=== PATIENT | male | born 1965 | race Caucasian/White ===

== ENCOUNTER → 2016-08-09 | Outpatient (CLI) | payer BC ==
--- NOTE | 2016-08-09 22:04 | PN ---
This is a 51-year-old male patient who is coming in with difficulties of daytime hypersomnolence and sleepiness. I diagnosed this patient with obstructive sleep apnea approximately 3 years ago. Back then the patient underwent a screening polysomnogram and he was found to have moderate to severe NIKOLAY with an apnea-hypopnea index of 21.9. His disease was worse in REM where his AHI during REM was as high as 48. He also demonstrated some mild degree of nocturnal oxygen desaturation and his sleep was slightly fragmented. He is a chronic alcohol drinker, and drinks approximately 5 to 6 beers every night and he is still drinking at the same over the past few years. Note that his previous treatment with CPAP therapy has been suboptimal. I tried to treat him with CPAP at a pressure of 9 cm of water. I added Ambien to improve his ability to induce and maintain sleep, and I also add Paxil to help with his increased anxiety. All these measures failed and the patient has quit using the treatment. Over the past 3 to 4 years the patient has gained around 5 pounds and is coming in knowing that his condition has gotten worse and has become more sleepy to the point where this is affecting his quality of life. I noted his CPAP machine and I noted that the patient had not been using the treatment at all. Meanwhile he is having chronic arthritic pain and is currently was started on low-dose prednisone of 5 mg p.o. daily. He is taking Cialis for rectal dysfunction. Is taking Prilosec for symptoms of chronic gastroesophageal reflux. BP is 119/64, pulse 82, respirations 16, temperature 97.8, saturation 96% on room air. Weight is 195. Height 5 feet 8 inches, neck size is 15-1/4. GENERAL APPEARANCE: Calm, comfortable. HEENT: Crowding of the posterior pharynx. There is no goiter, neck masses. LUNGS: Clear to auscultation. HEART: Sounds are regular rate and rhythm. Normal S1, S2. No S3, no S4. No murmurs. ABDOMEN: Soft, nontender, no organomegaly. EXTREMITIES: No edema, no cyanosis, or clubbing. IMPRESSION: 1. Moderately severe obstructive sleep apnea and an AHI of 21, worse during REM. 2. Increased hypersomnia and sleepiness. 3. Failed CPAP therapy in the past. 4. Alcoholism. 5. Increased anxiety and panic. PLAN: That patient has made a commitment to use CPAP and I gave him a [employer] nasal pillows to use which he liked and he seems to be favoring this type of mask. I also put him on an APAP trial over the next 30 days to assess his compliancy and tolerability to CPAP therapy. Based on that I will make further adjustments and decide if there is need for any further testing. Unfortunately he continues to drink alcohol, which will obviously fragment his sleep and wake him up constantly throughout the night. He is already aware of that. He was counseled in this regard on multiple occasions. We will continue to follow and make further recommendations.
== END | disposition home or self-care (01) ==
LOC: SLEEP 15:23
PROVIDERS: ATTEND Internal Medicine Critical Care Medicine
DX: G47.33 Obstructive sleep apnea (adult) (pediatric) (principal); F10.20 Alcohol dependence, uncomplicated; F41.9 Anxiety disorder, unspecified; F41.0 Panic disorder [episodic paroxysmal anxiety]; M19.90 Unspecified osteoarthritis, unspecified site; Z79.52 Long term (current) use of systemic steroids

== ENCOUNTER → 2017-03-14 | Outpatient (CLI) | payer BC ==
--- NOTE | 2017-03-14 16:44 | PN ---
PROGRESS NOTE A 51-year-old male patient with excessive daytime hypersomnolence and sleepiness. The patient was diagnosed having obstructive sleep apnea moderately severe many years back with an AHI of 21.9. He was given CPAP therapy which over the years he became noncompliant which he attributes to poor tolerability. He is a chronic alcohol drinker and drinks 5 to 6 beers every night. Note that his CPAP machine is currently set at a pressure of 9 cm of water. At one point, I added Ambien to improve his ability to induce and maintain sleep and also added Paxil to help him with increased anxiety. All these measures failed. During his last evaluation here in my office I gave him an auto CPAP trial which he failed to use. As such all the treatment failed and the patient is still symptomatic and wants to be treated for this. He has done some research and he is interested in upper airway stimulation technology for treatment of obstructive sleep apnea. I think that is reasonable. If this is being offered at other hospitals including the sleep center in [facility]. For that reason, a repeat sleep study will be done to reassess the presence and severity of obstructive sleep apnea and based on that further recommendations are to follow. His current vitals: Blood pressure is 114/71, pulse 66, respirations 14 temperature 98.4 saturation 96% on room air. Weight is 191, height is 67, a quarter BMI 29.7. [place] score is 22. GENERAL APPEARANCE: Calm, comfortable. HEENT: Mallampati class IV. There is no goiter or neck masses. Head is atraumatic, normocephalic. NECK: Negative for goiter or neck masses. Mallampati class IV. LUNGS: Clear to auscultation. HEART: Sounds regular rhythm. Normal S1, S2. No S3, S4. No murmurs. ABDOMEN: Is soft, nontender. No organomegaly. No direct tenderness, rebound or guarding. EXTREMITIES: No edema. No cyanosis or clubbing. NEUROLOGICALLY: AOx3. No focal neurological deficits. PSYCHIATRIC: Increased anxiety. SKIN: Negative for any ulcers, wounds or cellulitis. IMPRESSION: 1. Symptomatic obstructive sleep apnea. The patient has failed CPAP therapy. 2. Poor tolerability to CPAP. 3. Increased anxiety. 4. Alcoholism. 5. Anxiety and panic. PLAN: 1. Performing home sleep study to readdress the presence of sleep apnea. 2. Consider upper airway stimulation through a generator for treatment of obstructive sleep apnea. This can be done at [facility]. 3. We will make further recommendations or referrals once the home sleep study is completed. MMANDREINAL / IJN: [id number] /
== END | disposition home or self-care (01) ==
LOC: SLEEP 14:12
PROVIDERS: ATTEND Internal Medicine Critical Care Medicine
DX: G47.33 Obstructive sleep apnea (adult) (pediatric) (principal); F41.9 Anxiety disorder, unspecified; F10.20 Alcohol dependence, uncomplicated

== ENCOUNTER → 2017-10-24 | Outpatient (CLI) | payer BC ==
--- NOTE | 2017-10-24 18:00 | SFUN ---
SLEEP CENTER FOLLOW UP NOTE DATE OF SERVICE: 10/24/2017. HISTORY: The patient is 52-year-old male seeing me in followup regarding obstructive sleep apnea. The patient has severe NIKOLAY with an AHI of 56. He is unable to tolerate CPAP machine. We have tried different measures on this patient and over the years I have tried different mask interfaces and despite that the patient is unable to achieve a good compliancy. I checked his numbers on the CPAP machine and the patient has been utilizing CPAP almost all the time, yet he has been achieving 1.9 hours of CPAP use per night. His leak factor is 11 L/minute and his AHI while on treatment is down to 1.4. He noticed that he benefits from the treatment, however, is unable to keep it for long periods of time. He is currently using a full-face mask, an AirFit F10. No recent weight gain. No anxiety. No depression. No nocturnal heartburn. No nocturnal shortness of breath. No dreams. No sleep paralysis. No hallucinations. PHYSICAL EXAMINATION: BP 99/61, pulse 74, respirations 16, weight is 194, temperature 99.1 GENERAL APPEARANCE: Calm and comfortable. HEAD: Atraumatic, normocephalic. NECK: Supple. There is no JVD. No goiter or neck masses. LUNGS: Clear to auscultation. HEART: Regular rate and rhythm. Normal S1, S2. No S3, S4. No murmurs. ABDOMEN: Soft, nontender. No organomegaly. EXTREMITIES: No edema. No cyanosis or clubbing. IMPRESSION: 1. Symptomatic obstructive sleep apnea with an AHI of 56.2. 2. Hypersomnia with [place] score of 19. 3. Difficulty tolerating CPAP machine. 4. Chronic alcoholism. 5. Anxiety/panic. PLAN: I gave this patient a different mask, an AirFit F20, medium-sized, and AirTouch large size. He should be able to tolerate the treatment. I tried the mask on him and he had an excellent fit here in the office. We will see him back in 6 weeks time. I am worried that the patient will ultimately lose his machine if he does not demonstrate adequate use. He is aware of this. He will see me back in 6 weeks time for followup. MMODL / IJN: [id number] /
== END | disposition home or self-care (01) ==
LOC: SLEEP 13:49
PROVIDERS: ATTEND Internal Medicine Critical Care Medicine
DX: G47.33 Obstructive sleep apnea (adult) (pediatric) (principal); F10.20 Alcohol dependence, uncomplicated; F41.9 Anxiety disorder, unspecified; Z99.89 Dependence on other enabling machines and devices

== ENCOUNTER → 2021-02-27 | Outpatient (CLI) | payer BC ==
--- NOTE | 2021-02-28 08:56 | MR ---
EXAMINATION TYPE: MR brain/cspine wo DATE OF EXAM: 02/27/2021 COMPARISON: Prior MRI brain December 09, 2014. CT brain the 2014 HISTORY: Radiculopathy, episodic ataxia w/slurred speech TECHNIQUE: Multiplanar, multisequence imaging of the brain and brainstem and cervical spine are perfo rmed without IV contrast. FINDINGS: Brain: Diffusion weighted images demonstrate no evidence of a recent infarct or other diffusion abnormality. The ventricular system and cisternal spaces are normal in size and appearance. The brain volume is a ge appropriate. Few small scattered foci of T2 hyperintensity redemonstrated throughout the white mat ter bilaterally. Approximately 5-10 scattered tiny lesions. No significant progression from 2015 MRI. Midline structures demonstrate normal morphology. The craniocervical junction appears within normal limits. Normal vascular flow voids are present. Mild to moderate mucosal thickening inferior left max illary sinus is noted. IMPRESSION: Mild to minimal nonspecific white matter changes favored on the basis of product of chron ic small vessel ischemic change in patient of this age. No significant change from prior. Chronic lef t maxillary sinus disease inferiorly redemonstrated. C-SPINE: MRI CERVICAL SPINE: FINDINGS: Sagittal images of the cervical spine show the craniocervical junction to appear within nor mal limits. The cervical and upper thoracic spinal cord is normal in course, caliber, and signal. V ertebral alignment is anatomic. The vertebral body and intravertebral disk heights are normal. The bone marrow signal intensity is within normal limits. Axial images show C2-C3 and C3-C4 levels to appear within normal limits. Axial images at C4-C5 levels from uncovertebral facet degenerative changes bilaterally causing modera te to severe right and mild to moderate left-sided neural foraminal narrowing. Axial images at C5-C6 level broad-based left paracentral disc protrusion with uncovertebral facet spu rring facing anterior thecal sac and causing moderate to severe bilateral neural foraminal narrowing. Axial images at C6-C7 level show less prominent broad-based posterior disc protrusion effacing the an terior thecal sac and causing moderate bilateral neural foraminal narrowing. Axial images at C7-T1 level appear within normal limits. IMPRESSION: Multilevel degenerative changes C4-C5 through C6-C7 level as detailed above.
== END | disposition home or self-care (01) ==
LOC: RADMRIMAIN 14:09
PROVIDERS: ATTEND Family Medicine
DX: I67.82 Cerebral ischemia (principal); J32.0 Chronic maxillary sinusitis; M50.123 Cervical disc disorder at C6-C7 level with radiculopathy; M47.22 Other spondylosis with radiculopathy, cervical region; M99.71 Connective tissue and disc stenosis of intervertebral foramina of cervical region
CPT/HCPCS: 70551; 72141

== ENCOUNTER 2021-03-12 17:39 | Emergency (ER) | payer BC ==
[2021-03-12 18:19] VITALS: TEMP 98.1
[2021-03-12] MEDS ORDERED: ASPIRIN 81 MG PO STA (20:50)
[2021-03-12] MEDS ORDERED: KETOROLAC 15 MG/ML 1 ML VIAL IVP STA (20:51)
[2021-03-12 21:08] LABS: Basophils # (A) 0.1 k/uL (0-0.2); Basophils % (A) 1 %; Eosinophils # (A) 0.3 k/uL (0-0.7); Eosinophils % (A) 4 %; HCT 44.2 % (39.0-53.0); HGB 14.9 gm/dL (13.0-17.5); Lymphocytes % (A) 26 %; MCH 31.4 pg (25.0-35.0); MCHC 33.8 g/dL (31.0-37.0); MCV 92.9 fL (80.0-100.0); Mean Platelet Volume 7.1; Monocytes # (A) 0.5 k/uL (0-1.0); Monocytes % (A) 6 %; Neutrophils # (A) 4.9 k/uL (1.3-7.7); Neutrophils % (A) 62 %; Platelet Count 242 k/uL (150-450); RBC 4.76 m/uL (4.30-5.90); RDW 11.9 % (11.5-15.5); WBC 7.9 k/uL (3.8-10.6)
[2021-03-12 21:17] LABS: ALT 24 U/L (4-49); AST 28 U/L (17-59); African American GFR (CKD) >90 (>60 ml/min/1.73 sqM); Albumin 4.4 g/dL (3.5-5.0); Alkaline Phosphatase 65 U/L (38-126); Anion Gap 9 mmol/L; Blood Urea Nitrogen 15 mg/dL (9-20); Calcium 9.7 mg/dL (8.4-10.2); Carbon Dioxide 25 mmol/L (22-30); Chloride 103 mmol/L (98-107); Glucose 96 mg/dL (74-99); Non-African American GFR(CKD) >90 (>60 ml/min/1.73 sqM); Potassium 4.3 mmol/L (3.5-5.1); Sodium 137 mmol/L (137-145); Total Bilirubin 0.7 mg/dL (0.2-1.3); Total Protein 7.1 g/dL (6.3-8.2)
[2021-03-12 21:23] VITALS: BP 125/83; PULSE 64; RESP 16
[2021-03-12 21:35] LABS: Partial Thromboplastin Time 25.6 sec (22.0-30.0); Prothrombin Time 10.9 sec (9.0-12.0)
--- NOTE | 2021-03-12 21:58 | XR ---
EXAMINATION TYPE: XR chest 2V DATE OF EXAM: 03/12/2021 COMPARISON: Chest radiograph 12/08/2014. HISTORY: Chest pain. TECHNIQUE: Frontal and lateral views of the chest are obtained. FINDINGS: There is no focal air space opacity, pleural effusion, or pneumothorax seen. The cardiac silhouette size is within normal limits. There is increased prominence of the central pulmonary vasc ulature. The osseous structures are intact. IMPRESSION: Increasing prominence of the central pulmonary vasculature. No consolidation, effusion o r pneumothorax
--- NOTE | 2021-03-12 22:10 | ED ---
General Adult HPI - General Chief complaint: Chest Pain Stated complaint: Chest Pain Time Seen by Provider: 03/12/21 20:20 Source: patient, RN notes reviewed, old records reviewed Mode of arrival: ambulatory Limitations: no limitations - History of Present Illness Initial comments: Patient is a 55-year-old male with no significant past medical history who presents emergency Department complaining of sudden onset of chest pain. I evaluated the patient was placed in a room. Prior to me evaluating the patient, patient had chest pain approximately 4 hours prior. He describes it as a right- sided chest pain that was sudden in onset and achy. Lasted for approximately 2- 3 minutes. It self resolved. He states he was sitting down when it happened. He became concerned as he does have a history of a TIA and family members have a history of strokes and he wanted to be evaluated. He states that his symptoms have resolved. States that he had some reproducible chest pain on palpation of the right pectoralis muscle. He denied any shortness breath, lightheadedness, history of blood clots, fevers, chills, cough. Patient was not vaccinated for COVID-19. He otherwise has no acute complaints at this time. And no other associated complaints at the time of the chest pain. Is already resolved. He has no tobacco history or diabetes history. No history of early onset heart disease and family members. He is concerned for possible cardiac etiology for his chest pain which is why he presented to the ED. - Related Data Home Medications Medication Instructions Recorded Confirmed Multivitamin [Men's Multi-Vitamin] 1 each PO DAILY 12/08/14 12/08/14 Omeprazole [PriLOSEC] 40 mg PO BID 12/08/14 12/08/14 allopurinoL [Zyloprim] 100 mg PO DAILY 12/08/14 12/08/14 Previous Rx's Medication Instructions Recorded Aspirin EC [Ecotrin] 325 mg PO DAILY tablet. 12/09/14 Meclizine [Antivert] 25 mg PO BID #60 tab 12/10/14 Allergies Allergy/AdvReac Type Severity Reaction Status Date / Time No Known Allergies Allergy Verified 03/12/21 18:19 Review of Systems ROS Statement: Those systems with pertinent positive or pertinent negative responses have been documented in the HPI. Review of Systems: CONST: Denies fever EYES: Denies blurry vision ENT: Denies nasal congestion C/V: Endorses resolved chest pain RESP: Denies shortness of breath GI: Denies abdominal pain : Denies dysuria SKIN: Denies rash. MSK: Denies joint pain. NEURO: Denies headache ROS Other: All systems not noted in ROS Statement are negative. Past Medical History Past Medical History: GERD/Reflux, Hypertension Additional Past Medical History / Comment(s): Gout History of Any Multi-Drug Resistant Organisms: None Reported Past Surgical History: No Surgical Hx Reported Past Anesthesia/Blood Transfusion Reactions: No Reported Reaction Past Psychological History: Anxiety Smoking Status: Never smoker Past Alcohol Use History: Daily Past Drug Use History: None Reported - Past Family History Mother Family Medical History: CVA/TIA, Myocardial Infarction ([place]) Father Family Medical History: CVA/TIA, Myocardial Infarction ([place]) General Exam - General Exam Comments Initial Comments: General: Appears in no acute distress. HEAD: Normal with no signs of head trauma. EYES: PERRLA, EOMI, conjunctiva normal, no discharge. ENT: Hearing grossly intact, normal oropharynx. RESPIRATORY: Clear breath sounds bilaterally. No wheezes, rales, or rhonchi. C/V: Regular rate and rhythm. S1 and S2 auscultated, no edema, peripheral pulses 2+ and intact throughout ABD: Abd is soft, nontender, nondistended EXT: Normal range of motion, no obvious deformity SKIN: No rashes or lesions observed on exposed skin. NEURO: Alert and oriented 4. No focal deficits. Limitations: no limitations Course Vital Signs 03/12/21 03/12/21 18:17 21:22 Temperature 98.1 F Pulse Rate 66 64 Respiratory 20 16 Rate Blood Pressure 127/79 125/83 O2 Sat by Pulse 95 98 Oximetry Medical Decision Making - Medical Decision Making Based on the patient's presentation and physical exam, I'm concerned for possible cardiac etiology for his current symptoms. Patient is currently asymptomatic and his chest pain is resolved. It occurred over 4 hours ago therefore we will obtain a single troponin addition to cardiac workup consisting of EKG, chest x-ray. He endorses no acute complaints at this time. He'll be connected to continuous cardiac pain while he is in the department and given an aspirin. He also be given Toradol. Patient was in agreement this plan. Patient's EKG showed normal sinus rhythm with no signs of acute ischemia. Pa tient's chest x-ray revealed no acute cardiopulmonary process. Patient's lavatory studies are remarkable for a negative troponin. Remainder of his labs are within normal limits. I instructed the patient to follow up with their PCP in the next 3 days. . I explained that the patient should return to the emergency department if they experience any worsening symptoms. Strict return precautions were discussed with the patient. The patient expressed understanding of these instructions. I answered all questions that the patient had. The patient was discharged home in good condition with their prescriptions and follow up information. - Lab Data Result diagrams: 03/12/21 Unknown 03/12/21 Unknown Lab Results 03/12/21 03/12/21 03/12/21 Range/Units Unknown Unknown Unknown WBC 7.9 (3.8-10.6) k/uL RBC 4.76 (4.30-5.90) m/uL Hgb 14.9 (13.0-17.5) gm/dL Hct 44.2 (39.0-53.0) % MCV 92.9 (80.0-100.0) fL MCH 31.4 (25.0-35.0) pg MCHC 33.8 (31.0-37.0) g/dL RDW 11.9 (11.5-15.5) % Plt Count 242 (150-450) k/uL MPV 7.1 Neutrophils % 62 % Lymphocytes % 26 % Monocytes % 6 % Eosinophils % 4 % Basophils % 1 % Neutrophils # 4.9 (1.3-7.7) k/uL Lymphocytes # 2.0 (1.0-4.8) k/uL Monocytes # 0.5 (0-1.0) k/uL Eosinophils # 0.3 (0-0.7) k/uL Basophils # 0.1 (0-0.2) k/uL PT 10.9 (9.0-12.0) sec INR 1.0 (<1.2) APTT 25.6 (22.0-30.0) sec Sodium 137 (137-145) mmol/L Potassium 4.3 (3.5-5.1) mmol/L Chloride 103 (98-107) mmol/L Carbon Dioxide 25 (22-30) mmol/L Anion Gap 9 mmol/L BUN 15 (9-20) mg/dL Creatinine 0.67 (0.66-1.25) mg/dL Est GFR (CKD-EPI)AfAm >90 (>60 ml/min/1.73 sqM) Est GFR (CKD-EPI)NonAf >90 (>60 ml/min/1.73 sqM) Glucose 96 (74-99) mg/dL Calcium 9.7 (8.4-10.2) mg/dL Magnesium 2.0 (1.6-2.3) mg/dL Total Bilirubin 0.7 (0.2-1.3) mg/dL AST 28 (17-59) U/L ALT 24 (4-49) U/L Alkaline Phosphatase 65 (38-126) U/L Troponin I (0.000-0.034) ng/mL Total Protein 7.1 (6.3-8.2) g/dL Albumin 4.4 (3.5-5.0) g/dL 03/12/21 Range/Units Unknown WBC (3.8-10.6) k/uL RBC (4.30-5.90) m/uL Hgb (13.0-17.5) gm/dL Hct (39.0-53.0) % MCV (80.0-100.0) fL MCH (25.0-35.0) pg MCHC (31.0-37.0) g/dL RDW (11.5-15.5) % Plt Count (150-450) k/uL MPV Neutrophils % % Lymphocytes % % Monocytes % % Eosinophils % % Basophils % % Neutrophils # (1.3-7.7) k/uL Lymphocytes # (1.0-4.8) k/uL Monocytes # (0-1.0) k/uL Eosinophils # (0-0.7) k/uL Basophils # (0-0.2) k/uL PT (9.0-12.0) sec INR (<1.2) APTT (22.0-30.0) sec Sodium (137-145) mmol/L Potassium (3.5-5.1) mmol/L Chloride (98-107) mmol/L Carbon Dioxide (22-30) mmol/L Anion Gap mmol/L BUN (9-20) mg/dL Creatinine (0.66-1.25) mg/dL Est GFR (CKD-EPI)AfAm (>60 ml/min/1.73 sqM) Est GFR (CKD-EPI)NonAf (>60 ml/min/1.73 sqM) Glucose (74-99) mg/dL Calcium (8.4-10.2) mg/dL Magnesium (1.6-2.3) mg/dL Total Bilirubin (0.2-1.3) mg/dL AST (17-59) U/L ALT (4-49) U/L Alkaline Phosphatase (38-126) U/L Troponin I <0.012 (0.000-0.034) ng/mL Total Protein (6.3-8.2) g/dL Albumin (3.5-5.0) g/dL - EKG Data -: EKG Interpreted by Me EKG Comments: 12-lead Electrocardiogram Interpretation Note EKG was reviewed and interpreted by myself. 12-lead ECG performed at 1834 is interpreted by me as revealing normal sinus rhythm at a rate of 64 beats per minute. [place] is normal. ME interval is 182 ms, QRS duration is 86 ms, QTc is 412 ms.. There were no ST or T wave abnormalities to suggest myocardial ischemia or injury. R wave progression across the precordium was satisfactory. By my interpretation this EKG is non-diagnostic for acute ischemia. Disposition Clinical Impression: Chest pain of unknown etiology Disposition: HOME SELF-CARE Condition: Good Instructions (If sedation given, give patient instructions): Chest Pain (ED) Is patient prescribed a controlled substance at d/c from ED?: No Referrals: Drea Becerra DO [Primary Care Provider] - 1-2 days
== END 2021-03-12 22:20 | disposition home or self-care (01) ==
LOC: EC 17:39
DX: R07.89 Other chest pain (principal); I10 Essential (primary) hypertension; K21.9 Gastro-esophageal reflux disease without esophagitis; M10.9 Gout, unspecified; Z79.899 Other long term (current) drug therapy
CPT/HCPCS: 36415; 71046; 80053; 83735; 84484; 85025; 85610; 85730; 93005; 99285

== ENCOUNTER → 2021-12-28 | Outpatient (CLI) | payer BC ==
--- NOTE | 2021-12-28 08:26 | XR ---
EXAMINATION TYPE: XR orbit complete bilateral DATE OF EXAM: 12/28/2021 COMPARISON: NONE HISTORY: [id number] TECHNIQUE: 4 views of the orbits are submitted. FINDINGS: No evidence for radiopaque foreign body. Paranasal sinuses are well-aerated. No evidence fo r fracture. IMPRESSION: The patient is cleared for MRI.
== END | disposition home or self-care (01) ==
LOC: RADXRMAIN 06:37
PROVIDERS: ATTEND Physician Assistant
DX: Z18.10 Retained metal fragments, unspecified (principal)
CPT/HCPCS: 70200

== ENCOUNTER → 2022-01-17 | Outpatient (CLI) | payer BC ==
[2022-01-17 10:43] LABS: HCT 43.3 % (39.6-50.0); HGB 14.1 g/dL (13.0-17.0); MCH 29.8 pg (27.0-32.0); MCHC 32.6 g/dL (32.0-37.0); MCV 91.5 fL (80.0-97.0); Mean Platelet Volume 10.1 fL (9.5-12.2); NRBC Per 100 WBC 0 /100 WBCS (0.0-0.0); Platelet Count 277 X 10*3/uL (140-440); RBC 4.73 X 10*6/uL (4.40-5.60); RDW 12.6 % (11.5-14.5); WBC 7.23 X 10*3/uL (4.50-10.00)
[2022-01-17 11:05] LABS: ALT 23 U/L (10-49); AST 22 U/L (14-35); African American GFR (CKD) 109.5 (60.0-200.0); Albumin 4.5 g/dL (3.8-4.9); Alkaline Phosphatase 88 U/L (41-126); BUN/Creat Ratio 20.33 Ratio (12.00-20.00); Blood Urea Nitrogen 18.3 mg/dL (9.0-27.0); Calcium 9.8 mg/dL (8.7-10.3); Carbon Dioxide 25.6 mmol/L (20.0-27.5); Chloride 106 mmol/L (96-109); Chol/HDL Ratio 3.38 Ratio; Globulin 2.5 g/dL (1.6-3.3); Glucose 110 mg/dL (70-110); LDL Cholesterol,Calculated 108.5 mg/dL (0.0-131.0); Non-African American GFR(CKD) 94.5 (60.0-200.0); Potassium 4.9 mmol/L (3.5-5.5); Rheumatoid Factor, Qnt <10 IU/mL (0-15); Sodium 142 mmol/L (135-145)
[2022-01-17 19:15] LABS: Anti-DNA, DS unit <1.0 IU/mL; Anti-Smith Ab Interp NEGATIVE (NEGATIVE); DNA Double-Stranded NEGATIVE (NEGATIVE)
[2022-01-18 12:04] LABS: HLA B27 NEGATIVE
[2022-01-18 14:21] LABS: C-ANCA <1:20 Titer (<1:20)
== END | disposition home or self-care (01) ==
LOC: LABWHC1 07:06
PROVIDERS: ATTEND Family Medicine
DX: M12.9 Arthropathy, unspecified (principal); R73.02 Impaired glucose tolerance (oral); I65.9 Occlusion and stenosis of unspecified precerebral artery
CPT/HCPCS: 36415; 80053; 80061; 83036; 84153; 84443; 85027; 86038; 86225; 86235; 86255; 86431; 86618; 86812

== ENCOUNTER → 2022-09-20 | Outpatient (CLI) | payer BC | END | disposition home or self-care (01) | LOC: LABWHC1 06:53 | PROVIDERS: ATTEND Family Medicine | DX: Z53.9 Procedure and treatment not carried out, unspecified reason (principal) ==

== ENCOUNTER → 2023-07-17 | Outpatient (CLI) | payer BC ==
--- NOTE | 2023-07-17 17:18 | CT ---
EXAMINATION TYPE: CT angio chest DATE OF EXAM: 07/17/2023 COMPARISON: HISTORY: Chest pain x [address] DLP: 1070.8 mGycm CONTRAST: CTA thoracic aorta with 3-D reconstruction is performed and without and with IV Contrast, patient inj ected with 100 cc mL of Isovue 370. Contrast CTA of the thoracic aorta was performed from the lung apex through the upper abdomen. 3D re construction imaging obtained at a separate workstation. CT Chest: THORACIC AORTA: Ascending thoracic aortic aneurysm measuring 4.4 cm. The aortic arch and descending t horacic aorta are normal caliber. Mild atheromatous changes seen. There is no evidence for dissectio n or periaortic collection. LUNGS: The lungs are clear and free of infiltrate or atelectasis. No pulmonary nodule or mass is det ected. No pleural effusion or CT evidence of interstitial lung disease. MEDIASTINUM: No evidence for mediastinal hematoma. The heart is not enlarged. No evidence for med iastinal mass or adenopathy. HILAR STRUCTURES: No evidence for mass. No hilar adenopathy is appreciated. OTHER: No significant abnormality. IMPRESSION- Ascending thoracic aortic aneurysm measuring 4.4 cm. The aortic arch and descending thoracic aorta ar e normal caliber.
== END | disposition home or self-care (01) ==
LOC: RADCTMAIN 16:21
PROVIDERS: ATTEND Internal Medicine Interventional Cardiology
DX: I71.21 Aneurysm of the ascending aorta, without rupture (principal); R07.9 Chest pain, unspecified
CPT/HCPCS: 71275; Q9967

== ENCOUNTER → 2023-12-29 | Outpatient (CLI) | payer BC ==
--- NOTE | 2023-12-29 18:40 | MR ---
EXAMINATION TYPE: MR hip LT wo con DATE OF EXAM: 12/29/2023 COMPARISON: No radiographic correlation available HISTORY: 58-year-old male M2 5.552, left hip pain TECHNIQUE: Multiplanar, multisequence images of the left hip were obtained without IV contrast. FINDINGS: There is severe degenerative change at the left hip with complete loss of cartilage and joint space a long the superior weight-bearing aspect of the joint and reactive subchondral marrow edema on both si chilo of the joint. Subchondral cystic change measures up to 6 mm at the acetabular roof. There is christal inal spurring and a moderate to large left hip joint effusion which is probably reactive. Tiny 5 mm l oose body along the anterior hip joint at the level of the femoral neck. Mild degenerative change at the right hip. No evidence for hip fracture or AVN. No paralabral cyst is seen. The SI joints and sacrum as well as the pubic symphysis appear intact. Heterogeneous red marrow hyperplasia may be seen in setting of anemia, obesity, smoking, chronic dise ase. Lumbar spine reported separately. The rectus femoris origins are intact. There is some intrasubstance change at the right greater the l eft hamstrings origin suggesting tendinosis. The bilateral iliopsoas and gluteal insertions appear in tact. No abnormal fluid collection in the pelvis or pelvic lymphadenopathy. Symmetric course, caliber, and signal intensity of the sciatic nerves. IMPRESSION: 1. Severe left hip OA. There may be end stage, bone on bone degenerative change here. Recommend radio graphic correlation. 2. A moderate to large left hip joint effusion is likely reactive. No evidence for hip fracture or AV N. 3. Mild degenerative change at the right hip. 4. Mild bilateral hamstrings origin tendinosis.
--- NOTE | 2023-12-29 18:48 | MR ---
EXAMINATION TYPE: MR lumbar spine wo con DATE OF EXAM: 12/29/2023 COMPARISON: None HISTORY: 58-year-old male lower back and left hip pain, radiculopathy TECHNIQUE: Multiplanar, multisequence images of the lumbar spine were acquired without IV contrast. FINDINGS: Vertebral body heights are preserved. Alignment is maintained. Conus medullaris is normal. No suspicious bone marrow replacement. There is moderate degenerative disc disease from L3 through S1 levels with desiccated, narrowed, and bulging discs. Posterior annular fissure noted at L4-L5. Some corresponding ligamentum flavum thickening is present at L3-L4. Along with the disc bulge here, there is mild overall narrowing of the spinal canal. At other levels, bulging discs impresses on the ventral thecal sac but without significant spinal can al stenosis. There is moderate facet arthropathy mid and lower lumbar spine. There is a right L3-L4 facet joint ef fusion and on the left, some osseous edema and adjacent soft tissue edema probably reflecting acute e xacerbation of underlying OA. An early stress injury of the L3 pars is not excluded. On the right, changes resulting in moderate foraminal stenosis at L3-L4 and L5-S1. Mild at L4-L5. On the left, changes result in moderate to severe neuroforaminal stenosis at L5-S1 and mild at L3-L4 and L4-L5. Lateral disc osteophyte complexes at L5-S1 abut the bilateral extraforaminal L5 nerve roots. Ectatic upper abdominal aorta up to 2.6 cm. IMPRESSION: 1. Moderate degenerative disc disease from L3 through S1 levels along with moderate hypertrophic face t arthropathy here. 2. There is a posterior annular fissure at L4-L5 and a right-sided L3-L4 facet joint effusion. In add ition, there is osseous and adjacent soft tissue edema at the left L3-L4 facet joint. This could refl ect acute exacerbation of underlying OA versus an early left L3 pars interarticularis stress injury. 3. Mild overall narrowing of the spinal canal at L3-L4. No significant spinal canal stenosis. 4. Changes result in moderate to severe left and moderate right neuroforaminal stenosis at L5-S1. Mod erate on the right at L3-L4. 5. In addition, there are lateral disc osteophyte complexes at L5-S1 which abut the bilateral extrafo raminal L5 nerve roots.
== END | disposition home or self-care (01) ==
LOC: RADMRIMAIN 05:56
PROVIDERS: ATTEND Orthopaedic Surgery
DX: M16.0 Bilateral primary osteoarthritis of hip (principal); M47.26 Other spondylosis with radiculopathy, lumbar region; M51.16 Intervertebral disc disorders with radiculopathy, lumbar region; M25.78 Osteophyte, vertebrae; M48.062 Spinal stenosis, lumbar region with neurogenic claudication
CPT/HCPCS: 72148

== ENCOUNTER 2024-02-14 09:39 | Day surgery (SDC) | payer BC ==
[2024-02-12 12:36] VITALS: BMI 28.8
[2024-02-14] MEDS ORDERED: LIDOCAINE 1% (10MG/ML) FOR IV START INTRADERMA PRN (09:55)
[2024-02-14 10:08] VITALS: TEMP 97.5
[2024-02-14] MEDS: IV FLUID CONTINUATION 1,000 ML IV ONE (10:23)
[2024-02-14] MEDS: LACTATED RINGERS 1,000 ML IV SCH (10:24)
[2024-02-14] MEDS ORDERED: PROPOFOL 10 MG/ML 20 ML VIAL IV ONE (10:25)
[2024-02-14] MEDS ORDERED: LIDOCAINE 1% INJ 10MG/ML (20 ML MDV) ONE (10:25)
--- NOTE | 2024-02-14 10:45 | P.PCN ---
Date of Procedure: 02/14/24 Procedure(s) Performed: BRIEF HISTORY: Patient is a 58-year-old pleasant white male scheduled for an elective colonoscopy as a part of evaluation of chronic diarrhea for the last several months. Has been having 4-6 loose watery bowel movements daily. No blood or mucus in the stool. PROCEDURE PERFORMED: Colonoscopy With biopsy PREOPERATIVE DIAGNOSIS: Chronic diarrhea. IV sedation per Anesthesia. PROCEDURE: After informed consent was obtained, the patient, was brought into the endoscopy unit. IV sedation was administered by Anesthesia under continuous monitoring. Digital rectal examination was normal. Initially the Olympus CF-160 flexible video colonoscope was then inserted in the rectum, gradually advanced into the cecum without any difficulty. Careful examination was performed as the scope was gradually being withdrawn. Ileocecal valve and the appendiceal orifice were visualized and appeared normal. Prep was excellent. Mucosa of the cecum, ascending colon, transverse colon, descending colon, sigmoid colon, and rectum appeared normal. Random biopsies were done from the ascending and descending colon to rule out microscopic/collagenous colitis retroflexion was performed in the rectum and no lesions were seen. The patient tolerated the procedure well. IMPRESSION: Normal-appearing colon from rectum to cecum with no evidence of colitis or colorectal neoplasia. RECOMMENDATIONS: Findings of this examination were discussed with the patient as well as his family. He was advised to follow-up with the biopsy results. He will be seen in the office in 2 weeks.. Recommended repeat screening colonoscopy in 10 years
[2024-02-14 11:17] VITALS: BP 123/64; PULSE 64; RESP 15
== END 2024-02-14 11:29 | disposition home or self-care (01) ==
LOC: ORWHC2ENDO 09:39
PROVIDERS: ATTEND Internal Medicine Gastroenterology
DX: K52.832 Lymphocytic colitis (principal); K52.9 Noninfective gastroenteritis and colitis, unspecified; I10 Essential (primary) hypertension; Z79.82 Long term (current) use of aspirin; Z79.899 Other long term (current) drug therapy
CPT/HCPCS: 45380; 88305